=== PATIENT | male | born 1995 | race Caucasian/White ===

== ENCOUNTER 2019-11-03 20:39 | Emergency (ER) | payer OTHER ==
[~2019-11-03] VITALS: Ht 180.3 cm; Wt 98.2 kg
[2019-11-03] MEDS ORDERED: LIDOCAINE 1%/EPI 1:200,000/PF 10 ML VIAL INJ ONE (23:15)
[2019-11-03] MEDS ORDERED: LIDOCAINE 1%/EPI 1:200,000/PF 30 ML VIAL INJ ONE (23:15)
[2019-11-04 01:15] VITALS: BP 139/82
== END 2019-11-04 01:10 | disposition home or self-care (01) ==
LOC: EMS 20:41
DX: S81.811A Laceration without foreign body, right lower leg, initial encounter (principal); F17.210 Nicotine dependence, cigarettes, uncomplicated; W22.8XXA Striking against or struck by other objects, initial encounter; Y93.89 Activity, other specified; Y92.89 Other specified places as the place of occurrence of the external cause; Y99.8 Other external cause status
CPT/HCPCS: 12002; 73590; 99283; J3490